=== PATIENT | male | born 1990 | race African-American/Black ===

== ENCOUNTER 2016-09-02 00:08 | Emergency (ER) | payer SELFPAY ==
[~2016-09-02] VITALS: Ht 182.9 cm; Wt 81.6 kg
[2016-09-02 00:14] VITALS: BP 141/89
--- NOTE | 2016-09-02 00:53 | NUR ---
Patient does not wish to proceed with medical care recommended by Dr. BA ). Patient given information related to possible complications, up to and including , which could occur as a result of leaving the hospital at this time. Patient verbalizes understanding of risks involved due to leaving against medical advice. Patient has signed AMA form.
== END 2016-09-02 00:55 | disposition left against medical advice (07) ==
LOC: EDBD 00:09 → ER 00:09
DX: Z00.8 Encounter for other general examination (principal)
CPT/HCPCS: A4606; Z7610